=== PATIENT | male | born 1960 | race African-American/Black ===

== ENCOUNTER 2021-11-19 06:48 | Day surgery (SDC) | payer OTHER ==
[2021-11-19 07:17] VITALS: BMI 45.1
[2021-11-19] MEDS ORDERED: LIDOCAINE HCL/PF 2% SDV 5ML VIAL ONE (07:53)
[2021-11-19] MEDS ORDERED: PROPOFOL 20 ML ONE (07:53)
[2021-11-19 09:16] VITALS: RESP 20; TEMP 97.2
[2021-11-19 09:40] VITALS: BP 135/85; PULSE 72
== END 2021-11-19 10:05 | disposition home or self-care (01) ==
LOC: FASU-ENDO 06:48
PROVIDERS: ATTEND Internal Medicine Gastroenterology
PROC: 0DJD8ZZ Inspection of Lower Intestinal Tract, Via Natural or Artificial Opening Endoscopic (ICD-10-PCS; principal; 2021-11-19 08:41)
DX: Z12.11 Encounter for screening for malignant neoplasm of colon (principal); Z86.010 Personal history of colon polyps; K57.30 Diverticulosis of large intestine without perforation or abscess without bleeding